=== PATIENT | male | born 1955 | race Caucasian/White ===

== ENCOUNTER 2023-07-14 11:58 | Day surgery (SDC) | payer MEDICARE, OTHER ==
[~2023-07-14] VITALS: Ht 180.3 cm; Wt 77.3 kg
[~2023-07-14 11:58] MED LIST: LIPITOR20 MG GT
[2023-07-14 12:18] VITALS: BP 158/78
[2023-07-14] MEDS ORDERED: SILDENAFIL CIT100 MG PO (12:21)
--- NOTE | 2023-07-14 14:07 | NUR ---
07/14/23 1407 Banerjee,La Meyer PATIENT ARRIVED TO DAY SURGERY AWAKE, BUT DROWSY. DENIES PAIN. O2 TURNED OFF ON ARRIVAL. PATIENT ON ROOM AIR.
[2023-07-14 14:37] VITALS: BP 110/75
--- NOTE | 2023-07-15 08:43 | OR ---
[facility] [address], [place] [address] Signed DATE OF OPERATION: 07/14/2023 SURGEON: Bird Marrero MD PREOPERATIVE DIAGNOSIS: Colon screening. POSTOPERATIVE DIAGNOSIS: Polyps x3, one probable adenoma and two probable hyperplastic polyps. PROCEDURE: Total colonoscopy to cecum with cold morcellation polypectomy x3. ANESTHESIA: Intravenous sedation; fentanyl 100 mcg and Versed 5 mg. INDICATION: This 68-year-old white man is a patient of Dr. Raghavendra Rodriguez, who underwent colon screening last in 2011 at which time he had a hyperplastic polyp. He has no current symptoms of bleeding, diarrhea or constipation and no family history of colon cancer. He is admitted at this time to undergo colonoscopy. He understands the risk of bleeding, infection, and perforation. FINDINGS: The prep was excellent. Complete colonoscopy was undertaken of the cecum. There were three small polyps, one of them likely a small adenoma, the other two quite obviously hyperplastic, all three were excised. They were in the sigmoid and rectosigmoid. There were no other findings of concern other than small internal hemorrhoidal change. DESCRIPTION OF PROCEDURE: The patient was brought to the endoscopy suite and placed in the lateral decubitus position, given intravenous sedation to the point of slurred speech and nystagmus. Digital rectal examination was normal. An Olympus video colonoscope was passed in the rectum and manipulated throughout the colon ultimately intubating the cecum itself. The ileocecal valve and appendiceal orifice were normal. The scope was withdrawn from that point and examination throughout showed no sign of abnormality into the sigmoid where a small adenomatous appearing polyp was noted, this was excised with cold morcellation technique. Further withdrawal showed two other small hyperplastic polyps of the rectosigmoid, they were excised as well. Electronically Signed By: BIRD MARRERO MD 07/15/23 0843 PATIENT NAME: LEONOR ANDERSON OPERATIVE REPORT DATE OF : 55 REPORT #: [id number] PHYSICIAN: BIRD MARRERO MD PCP: RAGHAVENDRA RODRIGUEZ MD REPORT IS CONFIDENTIAL AND NOT TO BE RELEASED WITHOUT AUTHORIZATION [facility] [address], [place] [address] Signed Retroflexed view was undertaken showing internal hemorrhoidal change. No other findings of concern. The scope was removed and the patient was taken to the recovery room in good condition. CONCLUDING DIAGNOSIS: Polyps x3. PLAN: Recommend repeat colonoscopy in 5 years if one polyp was adenomatous; 10 years if all were hyperplastic. He will return to the ongoing care of Dr. Rodriguez. MD VENTURA Chávez/JENNIFER /[id number] cc: Raghavendra Rodriguez MD Copies: RAGHAVENDRA RODRIGUEZ MD ~ Electronically Signed By: BIRD MARRERO MD 07/15/23 0843 PATIENT NAME: LEONOR ANDERSON OPERATIVE REPORT DATE OF : 55 REPORT #: [id number] PHYSICIAN: BIRD MARRERO MD PCP: RAGHAVENDRA RODRIGUEZ MD REPORT IS CONFIDENTIAL AND NOT TO BE RELEASED WITHOUT AUTHORIZATION
--- NOTE | 2023-07-16 15:49 | PATH ---
[facility] [address] [facility] [place] [address] Signed SPECIMEN(S): A SIGMOID POLYP SPECIMEN(S): B RECTOSIGMOID POLYP SPECIMEN SOURCE: A. SIGMOID POLYP B. RECTOSIGMOID POLYP CLINICAL HISTORY: History of screening FINAL PATHOLOGIC DIAGNOSIS: A. Sigmoid polyp: - Hyperplastic polyp (one fragment). B. Rectosigmoid polyp: - Hyperplastic polyp (one fragment). JVR:clv MICROSCOPIC EXAMINATION: Histologic sections of all submitted blocks are examined by light microscopy. These findings, together with the gross examination, support the pathologic diagnosis. GROSS DESCRIPTION: A. The specimen, labeled and designated "Shade, sigmoid polyp," is received in formalin and consists of four guzman soft tissue fragments, ranging from 0.2-0.4 cm. Entirely submitted in (A1). B. The specimen, labeled and designated "Shade, rectosigmoid polyp," is received in formalin and consists of two guzman soft tissue fragments, ranging from 0.1-0.2 cm. Entirely submitted in (B1). VB (under the direct supervision of a pathologist) The Gross Description was prepared using a voice recognition system. The report was reviewed for accuracy; however, sound-alike word errors, addition and/or deletions may occur. If there is any question about this report, please contact Client Services. PERFORMING LABORATORY: Technical component was performed by [facility], [address] [place] [id number] (CLIA# [id number]). Professional interpretation was performed by [facility] - [facility], [address] [place] [id number] (CLIA#: [id number]). PATIENT NAME: LEONOR ANDERSON PATHOLOGY DATE OF : 55 REPORT #: [id number] PHYSICIAN: [facility] PCP: RAGHAVENDRA TRAVIS MD REPORT IS CONFIDENTIAL AND NOT TO BE RELEASED WITHOUT AUTHORIZATION [address] [place], [place] [address] Signed Diagnostician: Pranav Polanco MD Pathologist Electronically Signed 07/16/2023 Copies: ~ PATIENT NAME: LEONOR ANDERSON PATHOLOGY DATE OF : 55 REPORT #: [id number] PHYSICIAN: [facility] PCP: RAGHAVENDRA TRAVIS MD REPORT IS CONFIDENTIAL AND NOT TO BE RELEASED WITHOUT AUTHORIZATION
== END 2023-07-14 14:33 | disposition home or self-care (01) ==
LOC: OPS 11:58 → DS 11:58 → OPS 13:00 → DS 13:00 → OPS 14:33
PROVIDERS: ATTEND Surgery
PROC: 0DBN8ZZ Excision of Sigmoid Colon, Via Natural or Artificial Opening Endoscopic (ICD-10-PCS; principal; 2023-07-14 13:00)
DX: Z12.11 Encounter for screening for malignant neoplasm of colon (principal); Z86.010 Personal history of colon polyps; E78.5 Hyperlipidemia, unspecified; K63.5 Polyp of colon
CPT/HCPCS: 88305; 99153; G0500; J2250; J3010; J7121